=== PATIENT | female | born 1965 | race African-American/Black ===

== ENCOUNTER 2016-10-11 09:49 | Emergency (ER) | payer OTHER ==
[~2016-10-11] VITALS: Ht 162.6 cm; Wt 108.5 kg
[~2016-10-11 09:49] MED LIST: AMLODIPINE BESY10 MG PO; AMOXICILLIN500 MG PO; APRESOLINE25 MG PO; AZITHROMYCIN250 MG1 PO; BENADRYL25 MG PO; BENTYL10 MG PO; DICYCLOMINE HCL10 MG PO; EPIPEN ADU0.3 MG/0.3 IM; ERGOCALCIF50000 UNIT PO; FIORICET WI1 CAPSULE PO; FORTAMET500 M1 PO; GLIPIZIDE XL10 MG PO; GLIPIZIDE10 MG PO; GLUCOPHAGE1000 MG PO; HYDRALAZINE HCL25 M1 PO; HYDRALAZINE HCL25 MG PO; HYDROCHLOROTHIA25 MG PO; IMITREX50 MG PO; LISINOPRIL20 MG PO; METOPROLOL TART50 MG PO; MOTRIN800 MG PO; OMEPRAZOLE20 MG PO; PREDNISONE50 MG PO; PROMETHAZINE HC25 M1 PO; PROVENTIL,2.5 MG/3 M IH; SEROQUEL100 MG PO; SERTRALINE HCL50 MG PO; SIMVASTATIN40 MG PO; VICTOZA 2-0.6 MG/0.1 SQ; ZOFRAN ODT4 MG PO; ZOFRAN8 MG PO
[2016-10-11 10:42] LABS: EOSINOPHIL (%) 0.5 % (0-5); EOSINOPHIL COUNT 0.1 K/uL (0-0.3); HEMATOCRIT 42.7 % (36.0-46.0); IMMATURE GRANULOCYTE (%) 0.4 % (0.0-0.7); INSTRUMENT ABS NEUTROPHIL CT 7.2 K/uL; LYMPHOCYTE COUNT 2.1 K/uL (1.0-2.8); MCHC 32.6 G/DL (30.0-36.0); MCV 89.1 FL (83-99); MEAN PLAT.VOLUME 10.2 uM^3 (9.5-12.4); MONOCYTE (%) 5.4 % (3-12); MONOCYTE COUNT 0.5 K/uL (0-0.8); NEUTROPHIL (%) 72.6 % (45-76); NEUTROPHIL COUNT 7.2 K/uL (1.8-6.4); PLATELET COUNT 237 K/uL (156-360); RBC DIS.WIDTH-CV 13.6 % (11.8-14.6); RBC DIS.WIDTH-SD 44.3 % (39-53); RED BLOOD COUNT 4.79 M/uL (3.80-5.20); WHITE BLOOD COUNT 9.9 K/uL (4.1-10.2)
[2016-10-11 10:53] LABS: CHLORIDE 105 mEq/L (99-109); POTASSIUM 3.2 mEq/L (3.7-5.4); SODIUM 141 mEq/L (136-147)
[2016-10-11 10:55] LABS: GLUCOSE 263 mg/dL (70-99)
[2016-10-11 10:56] LABS: ANION GAP 10 MEQ/L (2-14)
[2016-10-11 10:57] LABS: TOTAL BILIRUBIN 0.3 mg/dL (0.0-1.0)
[2016-10-11 10:58] LABS: ALKALINE PHOSPHATASE 97 IU/L (3-129)
[2016-10-11 10:59] LABS: GFR ESTIMATE (CALCULATED) > 59 mL/min/
[2016-10-11 11:00] LABS: UREA NITROGEN (BUN) 16 mg/dL (9-23)
[2016-10-11 11:05] LABS: TROP-I INTERPRETATION NEGATIVE; TROPONIN-I < 0.01 ng/mL (0.0-0.30)
[2016-10-11 12:42] VITALS: BP 152/66
== END 2016-10-11 12:43 | disposition home or self-care (01) ==
LOC: EME 09:49
PROVIDERS: Physician Assistant
DX: G43.909 Migraine, unspecified, not intractable, without status migrainosus (principal); Z98.2 Presence of cerebrospinal fluid drainage device; G91.9 Hydrocephalus, unspecified; J45.909 Unspecified asthma, uncomplicated; E11.9 Type 2 diabetes mellitus without complications; I10 Essential (primary) hypertension; K21.9 Gastro-esophageal reflux disease without esophagitis; Z79.84 Long term (current) use of oral hypoglycemic drugs; Z79.899 Other long term (current) drug therapy; F17.200 Nicotine dependence, unspecified, uncomplicated; G93.2 Benign intracranial hypertension; Z88.8 Allergy status to other drugs, medicaments and biological substances
CPT/HCPCS: 70250; 70450; 71010; 72040; 74000; 80053; 84484; 85025; 93005; 99281; 99284; J1200; J2765; J7120

== ENCOUNTER 2016-12-10 16:13 | Emergency (ER) | payer OTHER ==
[~2016-12-10] VITALS: Ht 162.6 cm; Wt 109.0 kg
[2016-12-10] MEDS ORDERED: PROAIR HFA8.5 GM IH (17:11)
[2016-12-10 17:59] LABS: HEMATOCRIT 44.5 % (36.0-46.0); MCH 29.1 PG (29.0-34.0); MCHC 33.3 G/DL (30.0-36.0); MCV 87.6 FL (83-99); MEAN PLAT.VOLUME 10.5 uM^3 (9.5-12.4); PLATELET COUNT 193 K/uL (156-360); RBC DIS.WIDTH-CV 14.1 % (11.8-14.6); RBC DIS.WIDTH-SD 45.1 % (39-53); RED BLOOD COUNT 5.08 M/uL (3.80-5.20)
[2016-12-10 18:08] LABS: CHLORIDE 104 mEq/L (99-109); POTASSIUM 3.4 mEq/L (3.7-5.4); SODIUM 137 mEq/L (136-147)
[2016-12-10 18:09] LABS: GLUCOSE 308 mg/dL (70-99)
[2016-12-10 18:11] LABS: ANION GAP 11 MEQ/L (2-14)
[2016-12-10 18:13] LABS: GFR ESTIMATE (CALCULATED) > 59 mL/min/
[2016-12-10 18:14] LABS: UREA NITROGEN (BUN) 16 mg/dL (9-23)
[2016-12-10 20:33] VITALS: BP 144/91
== END 2016-12-10 20:34 | disposition home or self-care (01) ==
LOC: EME 16:13
PROVIDERS: Emergency Medicine
DX: R51 Headache (principal); Z98.2 Presence of cerebrospinal fluid drainage device; J45.909 Unspecified asthma, uncomplicated; E11.9 Type 2 diabetes mellitus without complications; I10 Essential (primary) hypertension; K21.9 Gastro-esophageal reflux disease without esophagitis; E78.5 Hyperlipidemia, unspecified; M79.7 Fibromyalgia; Z79.84 Long term (current) use of oral hypoglycemic drugs; F17.200 Nicotine dependence, unspecified, uncomplicated
CPT/HCPCS: 70450; 80048; 85027; 99281; 99284; J0780; J1200; J1885; J2765; J7030